=== PATIENT | female | born 2000 | race Caucasian/White ===

== ENCOUNTER → 2021-10-12 | Outpatient (CLI) | payer OTHER, SELFPAY ==
[2021-10-16 17:18] LABS: HPV Reflexed? NOT INDICATED
== END | disposition home or self-care (01) ==
LOC: LABSPEC 16:51
PROVIDERS: Visit Provider Obstetrics & Gynecology
DX: Z34.00 Encounter for supervision of normal first pregnancy, unspecified trimester (principal)
CPT/HCPCS: 87086; 88175; G0145

== ENCOUNTER → 2021-11-11 | Outpatient (CLI) | payer OTHER, SELFPAY ==
[2021-11-11 14:24] LABS: Absolute Lymphocyte Count 1.59 X10^3/uL (0.83-4.51); Absolute Neutrophil Count 5.3 X10^3/uL (2.0-7.7); Basophil# 0.02 X10^3/uL; Basophil% 0.3 % (0-1); Eosinophil# 0.07 X10^3/uL; Eosinophils% 0.9 % (0-5); Hematocrit 34.9 % (37-47); Hemoglobin 11.7 g/dL (12.0-15.0); Lymphocyte # 1.59 X10^3/ul (0.83-4.51); Lymphocyte % 21.1 % (19-41); Mean Corp Hgb Conc 33.5 g/dL (32-36); Mean Corpuscular Volume 92.6 fL (81-99); Mean Platelet Vol. 9.7 fl (6.2-12.0); Monocyte# 0.57 X10^3/uL; Monocyte% 7.6 % (0-10); NRBC Flagged by Analyzer 0 % (0-5); Neutrophil # 5.25 X10^3/uL (2.7-7.7); Neutrophil % 69.8 % (47-70); Platelet Count 228 K/mm3 (150-450); RBC Distribution Width CV 12.8 % (11.6-14.6); RBC Distribution Width SD 43.5 fl (35.1-43.9); Red Blood Count 3.77 M/mm3 (4.2-5.4); White Blood Count 7.5 K/mm3 (4.4-11.0)
[2021-11-11 14:57] LABS: Rubella IgG Reactive (Nonreactive)
== END | disposition home or self-care (01) ==
PROVIDERS: Obstetrics & Gynecology; Referring Provider Nurse Practitioner Women's Health; Visit Provider Nurse Practitioner Women's Health
DX: Z34.00 Encounter for supervision of normal first pregnancy, unspecified trimester (principal)
CPT/HCPCS: 36415; 85025; 86762; 86850; 86900; 86901

== ENCOUNTER → 2022-01-06 | Outpatient (CLI) | payer SELFPAY, OTHER ==
--- NOTE | 2022-01-06 12:48 | US_ITS ---
STUDY: SECOND AND THIRD TRIMESTER OBSTETRICAL ULTRASOUND REASON FOR EXAM: Female, 21 years old anatomy LMP: TECHNIQUE: Transabdominal and Transvaginal TECHNICAL QUALITY: Adequate. PRIOR ULTRASOUND: None. FINDINGS: There is a single intrauterine fetus. The fetus is in a cephalic presentation. There is demonstrated cardiac activity with a heart rate of 140 bpm. There is a normal amniotic fluid volume. The largest amniotic fluid pocket measures 4.2 cm x 3.6 cm. The amniotic fluid index (SHAHLA) is within normal limits. The placenta is anterior in location and is not low lying. There are Grade 0 placental changes. The cervix measures 4.1 cm in length. The bilateral adnexal regions are normal. BIOMETRY: BPD: 4.8 cm: 20 weeks, 3 days HC: 18.4 cm: 20 weeks, 5 days AC: 15.8 cm: 20 weeks, 6 days FL: 3.3 cm: 20 weeks, 2 days CI: 77.5 FL/BPD: 69% FL/HC: FL/AC: 21% HC/AC: 1.17 age by current US: 20 weeks, 3 days. CHE by current US: 05/23/2022. Estimated weight: 367 grams, +/- 55 grams, 40 %. Age by LMP: 20 weeks, 5 days. CHE by LMP: 05/21/2021. ANATOMY: Gender: Indeterminant Cranium: Normal lateral ventricles. Normal choroid plexus. Normal cerebellum. Normal cisterna magna. Normal face, nose and lips. Chest: Normal 4-chamber heart. Abdomen/Pelvis: Normal diaphragm. Normal stomach. Normal abdominal wall. Normal cord insertion. Normal 3 vessel cord. Normal kidneys. Normal bladder. Spine: Normal cervical spine. Normal thoracic spine. Normal lumbar spine. Normal sacrum. Extremities: Normal bilateral upper extremities. Normal bilateral lower extremities. IMPRESSION: Single live uterine gestation with mean gestational age of 20 weeks and 3 days. Electronically Signed: Ashvin Polk MD at 15:07 EDT , STUDY: FIRST TRIMESTER OBSTETRICAL ULTRASOUND REASON FOR EXAM: Female, 21 years old . Cervical length. LMP: TECHNIQUE: Transvaginal TECHNICAL QUALITY: Adequate. PRIOR ULTRASOUND: None. FINDINGS: The cervical length measures 4.1 cm. US/OB Anatomy Scan IMPRESSION: Cervical length measures 4.1 cm. Electronically Signed: Ashvin Polk MD at 15:08 EDT ,
== END | disposition home or self-care (01) ==
PROVIDERS: Visit Provider Nurse Practitioner Women's Health
DX: Z34.00 Encounter for supervision of normal first pregnancy, unspecified trimester (principal)
CPT/HCPCS: 76805; 76817

== ENCOUNTER → 2022-03-02 | Outpatient (CLI) | payer OTHER, SELFPAY ==
[2022-03-02 12:25] LABS: Absolute Lymphocyte Count 1.35 X10^3/uL (0.83-4.51); Absolute Neutrophil Count 7.1 X10^3/uL (2.0-7.7); Basophil# 0.03 X10^3/uL; Basophil% 0.3 % (0-1); Eosinophil# 0.06 X10^3/uL; Eosinophils% 0.7 % (0-5); Hematocrit 34.8 % (37-47); Hemoglobin 11.5 g/dL (12.0-15.0); Lymphocyte # 1.35 X10^3/ul (0.83-4.51); Mean Corpuscular Hgb 32.4 pg (27.0-32.0); Mean Platelet Vol. 10.1 fl (6.2-12.0); Monocyte# 0.36 X10^3/uL; NRBC Flagged by Analyzer 0 % (0-5); Neutrophil % 78.6 % (47-70); Platelet Count 212 K/mm3 (150-450); RBC Distribution Width CV 13.3 % (11.6-14.6); RBC Distribution Width SD 48.1 fl (35.1-43.9); Red Blood Count 3.55 M/mm3 (4.2-5.4)
[2022-03-02 12:58] LABS: Glucose Challenge Gest 1H 50g 177 mg/dL (70-140)
== END | disposition home or self-care (01) ==
LOC: LAB 11:57
PROVIDERS: Referring Provider Obstetrics & Gynecology; Visit Provider Obstetrics & Gynecology
DX: Z34.00 Encounter for supervision of normal first pregnancy, unspecified trimester (principal)
CPT/HCPCS: 36415; 82950; 85025

== ENCOUNTER → 2022-04-23 | Outpatient (CLI) | payer OTHER, SELFPAY ==
--- NOTE | 2022-04-23 13:53 | US_ITS ---
STUDY: SECOND AND THIRD TRIMESTER OBSTETRICAL ULTRASOUND - LIMITED REASON FOR EXAM: Female, 22 years old . Growth. Gestational diabetes. LMP: 08/14/2021 PRIOR ULTRASOUND: Comparison is made with prior study dated 01/06/2022. TECHNIQUE: Transabdominal TECHNICAL QUALITY: Adequate. FINDINGS: There is a single intrauterine fetus. The fetus is in a cephalic presentation. There is demonstrated cardiac activity with a heart rate of 138 bpm. There is a normal amniotic fluid volume. The largest amniotic fluid pocket measures 6.12 cm. The amniotic fluid index (SHAHLA) is 14.6 cm. The placenta is anterior in location and is not low lying. There are Grade 2 placental changes. BIOMETRY: BPD: 8.74 cm: 35 weeks, 2 days HC: 32.66 cm: 37 weeks, 0 days AC: 31.47 cm: 35 weeks, 3 days FL: 6.81 cm: 35 weeks, 0 days Age by LMP: 36 weeks, 0 days. CHE by LMP: 05/21/2021. age by prior US: 35 weeks, 5 days. CHE by prior US: 05/23/2021. age by current US: 35 weeks, 5 days. CHE by current US: 05/23/2021. Estimated weight: 2668 grams, +/- 400 grams, 35 percentile. US/OB Limited With Biometrics IMPRESSION: Single live intrauterine gestation with mean gestational age of 35 weeks and 5 days. The measurements obtained today fall within the normal expected range. Electronically Signed: Ashvin Polk MD at 15:28 EST ,
== END | disposition home or self-care (01) ==
PROVIDERS: Visit Provider Registered Nurse
DX: Z34.00 Encounter for supervision of normal first pregnancy, unspecified trimester (principal)
CPT/HCPCS: 76816; 87081

== ENCOUNTER 2022-05-02 09:00 | Outpatient (CLI) | payer OTHER, SELFPAY ==
[2022-05-02 09:14] VITALS: BMI 24.5
[2022-05-02 09:17] VITALS: BP 106/65; PULSE 93; TEMP 37; O2SAT 97
[2022-05-02 09:56] LABS: Bacteria 0 SEEN /hpf (None Seen); Mucous, Urine 0 SEEN /hpf (<or=2+); Red Blood Cells-Urine 0 SEEN /hpf (0-5); Squamous Epithelial Cells - UA 0 SEEN /hpf (5-10); White Blood Cells 0 SEEN /hpf (0-5)
--- NOTE | 2022-05-02 09:56 | OB.TRI.PN ---
Progress Notes Date of Service: 05/02/22 Progress Note: Patient presents for triage evaluation secondary to decreased movement FHT: 140 Moderate variability reactive no decelerations category I tracing [place]: no regular Contractions Assessment and plan: decreased movement Reactive NST, reassuring maternal and status patient discharged to home to follow-up as scheduled. See problem list details for additional plan information. Charges/Coding Procedures Urinary/Genital 52xxx-59xxx: 07654-89 non-stress test Interp
[2022-05-02 09:59] LABS: Color, Urine Yellow (Yellow); Glucose, Dipstick Normal (Normal); Ketone-Dipstick Negative (Negative); Leukocyte Esterase-Dipstick Negative /ul (Negative); Nitrite-Dipstick Negative (Negative); Occult Blood-Urine Negative /ul (Negative); Protein-Dipstick Negative (Negative); Specific Gravity, Urine 1.015 (1.002-1.030); Urine Bilirubin Dipstick Negative (Negative); Urine Clarity Clear (Clear); Urine Urobilinogen Normal (Normal)
[2022-05-02 10:12] LABS: Amphetamine Urine VISTA NEGATIVE (<1000 ng/mL); Barbiturate Urine VISTA NEGATIVE (< 200 ng/mL); Benzodiazepine Urine VISTA NEGATIVE (< 200 ng/mL); Cocaine Urine VISTA NEGATIVE (< 300 ng/mL); Ecstacy Urine VISTA NEGATIVE (< 500 ng/mL); Methadone Urine VISTA NEGATIVE (< 300 ng/mL); PCP Urine VISTA NEGATIVE (< 25 ng/mL); THC Urine VISTA NEGATIVE (< 50 ng/mL); Vista UDS pH Range 8
[2022-05-02 10:47] LABS: Syphilis Antibodies Non-reactive
[2022-05-02 11:09] LABS: HIV - WCH Non-Reactive (Nonreactive); Hepatitis B Surface Antigen Non-Reactive (Nonreactive); Hepatitis C Antibody Non-Reactive (Nonreactive)
[2022-05-02 11:45] LABS: Chlamydia Trachomatis by PCR Negative (Negative); Neisserai gonorrhoeae by PCR Negative (Negative); Probe Check PASS; Sample Adequacy Control PASS; Specimen Processing Control PASS
== END 2022-05-02 09:50 | disposition home or self-care (01) ==
LOC: WPOUT 09:08 → WP 09:09
PROVIDERS: Visit Provider Obstetrics & Gynecology
DX: O36.8190 Decreased fetal movements, unspecified trimester, not applicable or unspecified (principal); Z3A.00 Weeks of gestation of pregnancy not specified
CPT/HCPCS: 36415; 59025; 59050; 80307; 81001; 86703; 86780; 86803; 87340; 87491; 87591

== ENCOUNTER 2022-05-15 18:20 | Inpatient (IN) | payer SELFPAY, OTHER ==
[2022-05-15] VITALS (10 sets, daily range): BP systolic 113–132; BP diastolic 60–83; PULSE 76–100; TEMP 36.7–37.7; O2SAT 97–98; BMI 26.0
[2022-05-15 18:19] LABS: ROM Internal Control Test YES-OK TO RESULT pt. (Internal QC)
[2022-05-15 18:23] LABS: ROM Patient Test POSITIVE (Negative)
[2022-05-15] MEDS: Lactated Ringers 1,000 ML 200 ML IV (18:40)
[2022-05-15 19:22] LABS: Absolute Lymphocyte Count 1.56 X10^3/uL (0.83-4.51); Absolute Neutrophil Count 6.9 X10^3/uL (2.0-7.7); Basophil# 0.02 X10^3/uL; Basophil% 0.2 % (0-1); Eosinophil# 0.06 X10^3/uL; Eosinophils% 0.6 % (0-5); Hematocrit 36.3 % (37-47); Hemoglobin 12.5 g/dL (12.0-15.0); Lymphocyte # 1.56 X10^3/ul (0.83-4.51); Lymphocyte % 16.9 % (19-41); Mean Corp Hgb Conc 34.4 g/dL (32-36); Mean Corpuscular Hgb 33.1 pg (27.0-32.0); Mean Platelet Vol. 11.5 fl (6.2-12.0); Monocyte# 0.62 X10^3/uL; Monocyte% 6.7 % (0-10); NRBC Flagged by Analyzer 0 % (0-5); Neutrophil # 6.89 X10^3/uL (2.7-7.7); Neutrophil % 74.6 % (47-70); Platelet Count 193 K/mm3 (150-450); RBC Distribution Width CV 12.6 % (11.6-14.6); RBC Distribution Width SD 44.5 fl (35.1-43.9); Red Blood Count 3.78 M/mm3 (4.2-5.4); White Blood Count 9.2 K/mm3 (4.4-11.0)
[2022-05-15 20:56] LABS: Bedside Glucose 85 mg/dL (74-106)
[2022-05-15 20:56] LABS: Bedside Glucose 81 mg/dL (74-106)
[2022-05-16] VITALS (59 sets, daily range): BP systolic 105–152; BP diastolic 55–89; PULSE 65–112; RESP 16; TEMP 36.5–37.7; O2SAT 81–100
[2022-05-16] MEDS: 0.9% Saline Lock 10 ML Syringe IV ×2 (00:44→12:54)
[2022-05-16] MEDS: Oxytocin 15 Units/NS 250ml 15 UNITS/250 ML IV.SOLN 2 UNITS IV (00:47)
[2022-05-16 01:36] LABS: Bedside Glucose 88 mg/dL (74-106)
--- NOTE | 2022-05-16 04:50 | HP.PCM.OB_ITS ---
HPI - General General Date of Admission: 05/15/22 HPI Narrative ALLAN HUNTER, is a 22 F who presents IAL with SROM clear fluid Maternal Data Information CHE Calculator Estimated Delivery Date Method Current WG Current Estimate 05/21/22 LMP (Certain) 39w 2d Other Estimates 05/19/22 Ultrasound #1 39w 4d PFSH PFSH Medical History (Updated 05/16/22 @ 04:[address] Sherri Jamil MD) Gestational diabetes Home Medications prenat.vits,clarita,opa-neqd-dnbsg 1 tab PO DAILY 09/28/21 [History Last Taken 05/14/22] blood-glucose meter (True Metrix Air Glucose Meter) #1 ea 03/03/22 [Rx Last Taken Unknown] blood sugar diagnostic (True Metrix Glucose Test Strip) #100 ea 03/26/22 [Rx Last Taken Unknown] Allergy/AdvReac Type Severity Reaction Status Date / Time No Known Allergies Allergy Verified 05/13/22 13:00 Family History Father Hypertension Social History adopted: No household members: spouse current occupational status: employed current occupation: [employer] pets and animals: Yes pets and animals: dog(s) Smoking Status: Former smoker alcohol intake: never substance use type: does not use do you feel safe at home: Yes additional social history: Spouse Elliott History 1 Elective abortions Hx Para 0 Spontaneous abortions Hx # Term Pregnancies Ectopic pregnancies Hx # Pregnancies Multiple births # of living children Visit Details Expected Delivery Route/Plan Labor Preferences- CB/BF classes: encouraged labor support person: Elliott labor intervention preferences: [] pain management options preferred: limited intervention cut cord/dad catch: yes : yes PP control planned: discussed. discussed possible routes of delivery and associated risks: [] special requests: [] Plans Covid status: declines Flu vaccine: declines Tdap vaccine: declines Rhogam: na LARC form signed: yes Problem list reviewed and updated with the most current plan of care details and appropriate orders placed. Relevant counseling for the gestational age provided. Continue routine care and follow up unless otherwise noted in visit notes/problem list details OB Flowsheet Initial Weight: Not Recorded Date -?-?-?-?-?-?-?-?-?-?-?-?- EGA Weight BP Urine Prot -?-?-?-?-?-?-?-?-?-?-?-?- Glucose FHR FuHt Pres Dilation -?-?-?-?-?-?-?-?-?-?-?-?- Effaced St Visit Note 10/12/21 -?-?-?-?-?-?-?-?-?-?-?-?- 8w 3d 47.174 kg 130/72 -?-?-?-?-?-?-?-?-?-?-?-?- 178 -?-?-?-?-?-?-?-?-?-?-?-?- JV- , CRL co nsistent with LMP. pt is pentecostalism. wants minimal testing done to start. 11/11/21 -?-?-?-?-?-?-?-?-?-?-?-?- 12w 5d 46.04 kg 108/62 Negativ e -?-?-?-?-?-?-?-?-?-?-?-?- Negative 163 -?-?-?-?-?-?-?-?-?-?-?-?- MH-No VB. Will g et SP labs today. Br US to confirm active, live IUP 12/09/21 -?-?-?-?-?-?-?-?-?-?-?-?- 16w 5d 48.591 kg 105/68 Negati ve -?-?-?-?-?-?-?-?-?-?-?-?- Negative 155 -?-?-?-?-?-?-?-?-?-?-?-?- JV- no lof, vagi nal bleeding, or cramping. anatomy us for 01/0601/06/22 -?-?-?-?-?-?-?-?-?-?-?-?- 20w 5d 51.823 kg 120/76 Negati ve -?-?-?-?-?-?-?-?-?-?-?-?- Negative 147 -?--?-?-?-?-?-?-?-?-?-?-?- JV- normal anato my scan today. no complaints. 02/04/22 -?-?-?-?-?-?-?-?-?-?-?-?- 24w 6d 54.034 kg 112/77 Negati ve -?-?-?-?-?-?-?-?-?-?-?-?- Negative 140 23 -?-?-?-?-?-?-?-?-?-?-?-?- JV- no lof, v ag inal bleeding ,ro dec fm. no complaints. gct ordered 02/24/22 -?-?-?-?-?-?-?-?-?-?-?-?- 27w 5d 57.663 kg 110/80 Negati ve -?-?-?-?-?-?-?-?-?-?-?-?- Negative 152 26 -?-?-?-?-?-?-?-?-?-?-?-?- MH-No VB, LOF. G ood FM. Declines flu vaccine. Will do 28 wk labs within next week. Larc 03/10/22 -?-?-?-?-?-?-?-?-?-?-?-?- 29w 5d 58.627 kg 112/78 Negati ve -?-?-?-?-?-?-?-?-?-?-?-?- Negative 126 28 -?-?-?-?-?-?-?-?-?-?-?-?- JV- pt got a 17 7 on gct one hr and declined 3 hr. she is now being deemed a gestational diabetic. she has a log of her glucose levels for last week and they are normal. 03/26/22 -?-?-?-?-?-?-?-?-?-?-?-?- 32w 0d 59.988 kg 111/75 Negati ve -?-?-?-?-?-?-?-?-?-?-?-?- Negative 130 30 -?-?-?-?-?-?-?-?-?-?-?-?- SM- no vb lof go od fm no regular ctx 04/07/22 -?-?-?-?-?-?-?-?-?-?-?-?- 33w 5d 60.838 kg 111/67 Negati ve -?--?-?-?-?-?-?-?-?-?-?-?- Negative 135 30 -?-?-?-?-?-?-?-?-?-?-?-?- LC- no vb,lof,ct x. good fm. blood sugars very stable. all normal fastings and pp. growth scan ordered. 04/23/22 -?-?-?-?-?-?-?-?-?-?-?-?- 36w 0d 62.256 kg 110/76 Negati ve -?-?-?-?-?-?-?-?-?-?-?-?- Negative 124 36 Cephalic -?-?-?-?-?-?-?-?--?-?-?-?- JV- gbs collecte d. patient declines vaginal check. fundus under zyphroid. 04/29/22 -?-?-?-?-?-?-?-?-?-?-?-?- 36w 6d 63.219 kg 110/76 Negati ve -?-?-?-?-?-?-?-?-?-?-?-?- Negative 132 37 Cephalic -?-?-?-?-?-?-?-?-?-?-?-?- LC-no vb/lof/ctx . good fm. +varicose vein to left labia. gbs neg. growth scan 35%EFW. 05/05/22 -?-?-?-?-?-?-?-?-?-?-?-?- 37w 5d 64.92 kg 111/79 Negativ e -?-?-?-?-?-?-?-?-?-?-?-?- Negative 138 36 Cephalic -?-?-?-?-?-?-?-?--?-?-?-?- LC- blood sugar all controlled! LC- no vb/lof/ctx. good fm. blood sugar all controlled. declined vaginal exam. 05/13/22 -?-?-?-?-?-?-?-?-?-?-?-?- 38w 6d 65.374 kg 137/81 -?-?-?-?-?-?-?-?-?-?-?-?- 130 38 Cephalic 1 -?-?-?-?-?-?-?-?-?-?-?-?- 40 -2 SM- no vb lof good fm no regular ctx BS well controlled discuss iol by tuesday night 05/16 if no labor, will schedule next week. 05/15/22 -?-?-?-?-?-?-?-?-?-?-?-?- 39w 1d 66.735 kg 123/72 130/83 130/82 132/82 113/60 105/55 113/61 114/58 117/62 136/89 -?-?-?-?-?-?-?-?-?-?-?-?- -?-?-?-?-?-?-?-?-?-?-?-?- NST FHR Rate Baby A Baseline: 130 Variability:: Moderate Accelerations:: 15 x 15 Decelerations:: None NST Reactive:: Yes FHR Category:: Category I Uterine Activity:: q3-5 ROS Constitutional Constitutional: Reports systems reviewed and no addt'l complaints, except as documented ENT HEENT: Reports systems reviewed and no addt'l complaints, except as documented Cardiovascular Cardiovascular: Reports systems reviewed and no addt'l complaints, except as documented Respiratory/Chest Respiratory/Chest: Reports systems reviewed and no addt'l complaints, except as documented Gastrointestinal Gastrointestinal: Reports systems reviewed and no addt'l complaints, except as documented and nausea; Denies abdominal pain Genitourinary Genitourinary: Reports systems reviewed and no addt'l complaints, except as documented, contractions Details: present and frequency (regular ) and movement Details: present Musculoskeletal Musculoskeletal: Reports systems reviewed and no addt'l complaints, except as documented Integumentary Integumentary: Reports as per HPI Neurologic Neurologic: Reports systems reviewed and no addt'l complaints, except as documented Endocrine Endocrinology: Reports systems reviewed and no addt'l complaints, except as documented Vital Signs Vital Signs Vital Signs: 05/15/22 18:13 05/15/22 18:13 05/15/22 18:15 Temperature Temperature Source Temporal Pulse Rate 96 Blood Pressure 123/72 H BP Systolic 123 BP Diastolic 72 Pulse Ox 05/15/22 18:15 05/15/22 19:29 05/15/22 19:29 Temperature 99.0 F Temperature Source Pulse Rate 100 Blood Pressure 130/83 H BP Systolic 130 BP Diastolic 83 Pulse Ox 05/15/22 19:38 05/15/22 19:38 05/15/22 20:27 Temperature Temperature Source Temporal Pulse Rate 95 Blood Pressure BP Systolic BP Diastolic Pulse Ox 98 05/15/22 20:27 05/15/22 20:28 05/15/22 20:28 Temperature Temperature Source Pulse Rate 93 Blood Pressure 130/82 H BP Systolic 130 BP Diastolic 82 Pulse Ox 98 05/15/22 20:27 05/15/22 21:59 05/15/22 21:59 Temperature 98.9 F Temperature Source Temporal Pulse Rate Blood Pressure 132/82 H BP Systolic 132 BP Diastolic 82 Pulse Ox 05/15/22 22:00 05/15/22 22:00 05/15/22 21:59 Temperature 98.1 F Temperature Source Pulse Rate 83 Blood Pressure BP Systolic BP Diastolic Pulse Ox 98 05/15/22 23:18 05/15/22 23:18 05/15/22 23:18 Temperature Temperature Source Temporal Pulse Rate 76 Blood Pressure 113/60 BP Systolic 113 BP Diastolic 60 Pulse Ox 05/15/22 23:19 05/15/22 23:18 05/15/22 19:38 Temperature 98.9 F Temperature Source Temporal Pulse Rate Blood Pressure BP Systolic BP Diastolic Pulse Ox 97 05/15/22 19:38 05/16/22 00:27 05/16/22 00:27 Temperature 99.8 F H Temperature Source Pulse Rate 75 Blood Pressure 105/55 L BP Systolic 105 BP Diastolic 55 Pulse Ox 05/16/22 00:27 05/16/22 00:28 05/16/22 00:28 Temperature Temperature Source Temporal Pulse Rate 81 Blood Pressure BP Systolic BP Diastolic Pulse Ox 97 05/16/22 00:27 05/16/22 02:01 05/16/22 02:02 Temperature 99.2 F H Temperature Source Pulse Rate 75 Blood Pressure 113/61 BP Systolic 113 BP Diastolic 61 Pulse Ox 05/16/22 02:02 05/16/22 02:02 05/16/22 02:02 Temperature 98.9 F Temperature Source Temporal Pulse Rate Blood Pressure BP Systolic BP Diastolic Pulse Ox 97 05/16/22 03:02 05/16/22 03:02 05/16/22 03:03 Temperature Temperature Source Temporal Pulse Rate 68 Blood Pressure 114/58 L BP Systolic 114 BP Diastolic 58 Pulse Ox 05/16/22 03:03 05/16/22 03:02 05/16/22 03:53 Temperature 99.8 F H Temperature Source Pulse Rate Blood Pressure 117/62 BP Systolic 117 BP Diastolic 62 Pulse Ox 96 05/16/22 03:53 05/16/22 03:54 05/16/22 03:54 Temperature 98.1 F Temperature Source Temporal Pulse Rate 68 Blood Pressure BP Systolic BP Diastolic Pulse Ox Weight Weight: 66.735 kg Body Mass Index (BMI) 26.0 Physical Exam Const alert, oriented x3 and healthy appearing Constitutional Narrative: uncomfortable with contractions HEENT normocephalic and moist oral mucous membranes Head and Scalp: atraumatic Neck full ROM, no lymphadenopathy, supple and thyroid normal General: trachea midline Thyroid: thyroid normal Lymph Lymphatic: no lymphadenopathy noted Chest inspection of chest normal Resp normal respiratory effort Cardio regular rate GI normal to inspection, nondistended, normoactive bowel sounds, soft to palpation and non-tender Inspection: gravid external exam normal Bimanual Exam - Vag & Uterus: uterus non-tender Manual OB Exam: estimated gestational size appropriate, presentation cephalic, dilated, effaced and station Extremity normal to inspection General Extremity: Negative for edema Skin no rashes or lesions noted Neuro deep tendon reflexes 2+ bilaterally Motor Exam: strength 5/5 throughout and clonus absent Psych mental status grossly normal Labs Labs Labs: Blood Type A POSITIVE Antibody Screen NEGATIVE Hct 36.3 % (37-47) L Hgb 12.5 g/dL (12.0-15.0) Obstetrics US Syphilis Total Ab Non-reactive Rubella IgG Antibody Reactive (Nonreactive) Hep Bs Antigen Non-Reactive (Nonreactive) HIV 1&2 Antibody Non-Reactive (Nonreactive) Glucose 1 Hr 50 gm 177 mg/dL (70-140) H Assessment & Plan (1) : QUALIFIERS: Weeks of gestation: 39 weeks Qualified Code(s): Z3A.39 - 39 weeks gestation of COMMENT: GBS negative, Declines carrier and genetic screen. Nl anatomy (2) Supervision of normal first : COMMENT: PRR(SP labs) CHE:05/21/22 Sp:[place] (3) Gestational diabetes: COMMENT: diet controlled, well controled, check fasting daily and alternating testing after meals (4) SROM (spontaneous rupture of membranes): PLAN: Plan Patient presents IAL, plan expectant management for , pitocin PRN if needed. Pain management: minimal intervention. GBS neg. Management of any complications: none I have reviewed the [facility] and made any clinically relevant updates.
[2022-05-16 05:11] LABS: Bedside Glucose 71 mg/dL (74-106)
[2022-05-16 08:21] LABS: Bedside Glucose 86 mg/dL (74-106)
[2022-05-16] MEDS: LACTATED RINGERS 500 ML 999 ML IV (09:12)
[2022-05-16] MEDS: Lactated Ringers 1,000 ML 200 ML IV (09:12)
[2022-05-16] MEDS: Ondansetron 4 MG/2 ML Vial IV (10:12)
[2022-05-16] MEDS: fentaNYL-bupivacaine (epidural) 100 ML BAG EPIDURAL (10:47)
--- NOTE | 2022-05-16 12:31 | EX.PCM.OBRPT ---
Assessment & Plan (1) Gestational diabetes: COMMENT: diet controlled, well controled, check fasting daily and alternating testing after meals (2) Supervision of normal first : COMMENT: PRR(SP labs) CHE:05/21/22 Sp:[place] (3) : QUALIFIERS: Weeks of gestation: 39 weeks Qualified Code(s): Z3A.39 - 39 weeks gestation of COMMENT: GBS negative, Declines carrier and genetic screen. Nl anatomy (4) SROM (spontaneous rupture of membranes): (5) Vaginal delivery: COMMENT: SM IAL SROM boy Gab 39 Maternal Data Information CHE Calculator Estimated Delivery Date Method Current WG Current Estimate 05/21/22 LMP (Certain) 39w 2d Other Estimates 05/19/22 Ultrasound #1 39w 4d Vaginal Delivery Operative Information Date of Procedure: 05/16/22 Pre-Operative Diagnosis: IAL Post-Operative Diagnosis: same Surgery / Procedure Performed: Spontaneous Vaginal Delivery Type of Anesthesia: Epidural Special Medications: none Estimated Blood Loss: 200 Fluids Replaced: crystalloid Findings Description of Procedure: Patient began pushing and delivered the head in the ZINA presentation. The head was delivered atraumatically . The anterior and posterior shoulders delivered without complication followed by the rest of the infant and the was placed on the maternal abdomen. Delayed cord clamping was employed for approximately 60 seconds. Cord was clamped and cut and gentle traction was applied to the cord and the placenta delivered spontaneously immediately following it was noted to be intact with three-vessel cord. The perineum and vagina were inspected and noted to have a second degree laceration repaired in the usual fashion. EBL was 200. Patient and infant tolerated delivery well. Presentation: ZINA Amniotic Membrane Rupture Type: Spontaneous Amniotic Fluid Description: Clear Placental Delivery Description: Spontaneous Placenta Disposition: [facility] Cord Vessel Description: 3 Vessels Cord Entanglement: None Delayed Cord Clamping: Yes Post Vaginal Delivery Medications Given After Delivery: IV Pitocin Episiotomy Description: None Laceration: Perineal Extension/lac and 2nd degree Complication Complications: None Procedures Urinary/Genital 52xxx-59xxx: [id number] Vaginal Delivery [facility]
--- NOTE | 2022-05-16 12:33 | PCM.DC ---
Discharge Instructions Diet Discharge Diet: No restrictions Activity Discharge Activity: Return to Normal Activity, May Drive, May Shower and May Take a Tub Bath (in 4 weeks) May resume sexual activity in: 6-8 weeks (after seen by OB provider) Weight Bearing Status: Full weight bearing Lifting Restrictions: none Dressing / Incision Call your doctor if you observe: Fever of 101 or Higher, Inability to urinate, Using more than 1 pad per hour (for more than 2 hours in a row or more), Shortness of breath, Dizziness, Chest pain and - (headache not controlled with tylenol, change in vision) Follow Up Care When: in 6 weeks for visit, call the office to make the appointment. If you had elevated blood pressures call the office to be seen within 1 week. Test Results: Test results from this visit will be discussed in further detail at your follow-up appointment, if applicable. Discharge Plan Admission Admit Date/Time: 05/15/22 18:20 Attending Provider: Sherri Jamil Primary Care Provider: Care Physician,Lakesha Primary Discharge Orders/Prescriptions Prescriptions: No Action prenat.vits,clarita,[id number] Tablet 1 tab PO DAILY (DME) True Metrix Glucose Test Strip Strip See Rx Instructions .ROUTE .MEDSUPPLY Qty: 100 4RF Rx Instructions: As directed (DME) blood-glucose meter [True Metrix Air Glucose Meter] [facility] See Rx Instructions .ROUTE .MEDSUPPLY Qty: 1 0RF Rx Instructions: As directed Referrals / Follow Up: Care Physician,No Primary [Primary Care Provider] - Disposition Disposition (needs filled in before D/C Order can be placed): Home, Self Care
[2022-05-16 14:05] LABS: Bedside Glucose 105 mg/dL (74-106)
[2022-05-16] MEDS: Acetaminophen 500 MG Tablet 1000 MG PO (19:45)
[2022-05-17 04:04] VITALS: BP 121/74; PULSE 74; RESP 18; TEMP 36.8
[2022-05-17] MEDS: Acetaminophen 500 MG Tablet 1000 MG PO (04:34)
[2022-05-17 06:46] LABS: Bedside Glucose 79 mg/dL (74-106)
[2022-05-17 08:25] VITALS: BP 126/61; PULSE 76; RESP 16; TEMP 36.6
--- NOTE | 2022-05-17 08:40 | PCM.PN.OB ---
Subjective Subjective Patient doing well without complaints. Tolerating PO. Ambulating and voiding without difficulty. Feeding well. Denies chest pain, shortness of breath, calf pain/swelling, fevers, chills, lightheadedness. Objective Data Objective Data Vital Signs: Vital Signs Temp Pulse Resp BP Pulse Ox O2 Del Method 98.3 F 74 18 121/74 H 97 Room Air 05/17/22 04:04 05/17/22 04:04 05/17/22 04:04 05/17/22 04:04 05/16/22 17:23 05/16/22 23:44 Oxygen Delivery Method Room Air Weight: 147 lb 2 oz Body Mass Index (BMI) 26.0 Intake & Output: Intake and Output for Last 24 Hours 05/15/22 05/16/22 05/17/22 23:59 23:59 23:59 Intake Total 295.84 / 295.84 1799.17 / 1799.17 Output Total 825 / 825 Balance 295.84 / 295.84 974.17 / 974.17 Lab / Micro Data Result Diagrams: 05/15/22 18:35 Labs: Laboratory Results - last 24 hr 05/16/22 13:31: POC Glucose 105 05/17/22 06:23: POC Glucose 79 Physical Exam Const alert, oriented x3 and no apparent distress HEENT normocephalic Eyes PERRL Chest inspection of chest normal Nipple/Areola: nipples/areola normal Resp normal respiratory effort, normal air movement, no retractions and no use of accessory muscles Cardio regular rate GI normal to inspection, nondistended, normoactive bowel sounds GI Narrative: fundus firm at u, mild lochia, no clots Extremity normal to inspection Skin no rashes or lesions noted Neuro oriented x3 Psych mental status grossly normal Assessment & Plan (1) Vaginal delivery: COMMENT: SM IAL SROM boy Gab 39 (2) Gestational diabetes: COMMENT: diet controlled, well controlled 2 hour GTT PLAN: Plan s/p PPD # 1, normal pp exam. stable for d/c 1. routine post delivery care 2. breast feeding- support given 3. rh positive 4. rubella immune 5. d/c home today
[2022-05-17 08:51] VITALS: BP 126/61; PULSE 76
[2022-05-17] MEDS: Benzocaine/Lanolin/Aloe Vera 1 SPRAY EACH TOPICAL (09:03)
[2022-05-17 12:28] VITALS: BP 120/67; PULSE 85
[2022-05-17 13:04] VITALS: BP 120/67; PULSE 85; RESP 16; TEMP 36.5
== END 2022-05-17 14:15 | disposition home or self-care (01) | DRG 807 ==
LOC: WP 18:26 → WPOUT 05-17 11:39
PROVIDERS: Admitting Provider Obstetrics & Gynecology; Visit Provider Obstetrics & Gynecology
DX: O24.420 Gestational diabetes mellitus in childbirth, diet controlled (principal); Z37.0 Single live birth; O42.92 Full-term premature rupture of membranes, unspecified as to length of time between rupture and onset of labor; O70.1 Second degree perineal laceration during delivery; Z3A.39 39 weeks gestation of pregnancy; Z87.891 Personal history of nicotine dependence
CPT/HCPCS: 59025; 59050; 82962; 84112; 85025; 86850; 86900; 86901; 99221; J7120; A4216; G0378; J2405

== ENCOUNTER → 2023-06-16 | Outpatient (CLI) | payer OTHER, SELFPAY ==
[2023-06-21 06:09] LABS: Chlamydia By Nucleic Acid AMP Negative (Negative); Gonococcus By Nucleic Acid AMP Negative (Negative)
== END | disposition home or self-care (01) ==
LOC: LABSPEC 16:32
PROVIDERS: Referring Provider Advanced Practice Midwife; Visit Provider Advanced Practice Midwife
DX: Z34.90 Encounter for supervision of normal pregnancy, unspecified, unspecified trimester (principal); Z3A.00 Weeks of gestation of pregnancy not specified
CPT/HCPCS: 87086; 87491; 87591

== ENCOUNTER → 2023-07-12 | Outpatient (CLI) | payer OTHER, SELFPAY ==
[2023-07-12 14:43] LABS: Absolute Lymphocyte Count 1.88 X10^3/uL (0.83-4.51); Absolute Neutrophil Count 6.2 X10^3/uL (2.0-7.7); Basophil# 0.03 X10^3/uL; Basophil% 0.3 % (0-1); Eosinophil# 0.06 X10^3/uL; Eosinophils% 0.7 % (0-5); Hematocrit 34.5 % (37-47); Hemoglobin 11.4 g/dL (12.0-15.0); Lymphocyte # 1.88 X10^3/ul (0.83-4.51); Lymphocyte % 21.4 % (19-41); Mean Corpuscular Hgb 29.6 pg (27.0-32.0); Mean Corpuscular Volume 89.6 fL (81-99); Mean Platelet Vol. 9.6 fl (6.2-12.0); Monocyte# 0.55 X10^3/uL; Monocyte% 6.3 % (0-10); NRBC Flagged by Analyzer 0 % (0-5); Neutrophil # 6.23 X10^3/uL (2.7-7.7); Platelet Count 276 K/mm3 (150-450); RBC Distribution Width CV 13.3 % (11.6-14.6); RBC Distribution Width SD 43.6 fl (35.1-43.9); Red Blood Count 3.85 M/mm3 (4.2-5.4); White Blood Count 8.8 K/mm3 (4.4-11.0)
[2023-07-12 15:24] LABS: Hemoglobin A1c 5.4 % (3.8-5.6)
[2023-07-12 15:57] LABS: HIV - WCH Non-Reactive (Nonreactive); Hepatitis B Surface Antigen Non-Reactive (Nonreactive); Hepatitis C Antibody Non-Reactive (Nonreactive); Rubella IgG Reactive (Nonreactive); Syphilis Antibodies Non-reactive
== END | disposition home or self-care (01) ==
PROVIDERS: Referring Provider Advanced Practice Midwife; Visit Provider Advanced Practice Midwife
DX: O09.299 Supervision of pregnancy with other poor reproductive or obstetric history, unspecified trimester (principal); Z86.32 Personal history of gestational diabetes; Z3A.00 Weeks of gestation of pregnancy not specified
CPT/HCPCS: 36415; 83036; 85025; 86703; 86762; 86780; 86803; 86850; 86900; 86901; 87340

== ENCOUNTER → 2023-09-05 | Outpatient (CLI) | payer SELFPAY, OTHER ==
--- NOTE | 2023-09-05 14:12 | US_ITS ---
STUDY: SECOND AND THIRD TRIMESTER OBSTETRICAL ULTRASOUND REASON FOR EXAM: Female, 23 years old anatomy LMP: April 18, 2023. TECHNIQUE: Transabdominal and Transvaginal TECHNICAL QUALITY: Adequate. PRIOR ULTRASOUND: None. FINDINGS: There is a single intrauterine fetus. The fetus is in a cephalic presentation. There is demonstrated cardiac activity with a heart rate of 155 bpm. There is a normal amniotic fluid volume. The largest amniotic fluid pocket measures 4 cm. The amniotic fluid index (SHAHLA) is within normal limits. The placenta is posterior in location and is not low lying. There are Grade 1 placental changes. The cervix measures 3.7 cm in length. The bilateral adnexal regions are normal. BIOMETRY: BPD: 4.5 cm: 19 weeks, 4 days HC: 16.8 cm: 19 weeks, 3 days AC: 15.2 cm: 20 weeks, 3 days FL: 3.1 cm: weeks, 3 days CI: 76.7 FL/BPD: 68.4 FL/HC: FL/AC: 20.1 HC/AC: 1.1 age by current US: 19 weeks, 5 days. CHE by current US: January 25, 2024. Estimated weight: 324 grams, +/- 49 grams, 44 %. Age by LMP: 20 weeks, 0 days. CHE by LMP: January 23, 2024. ANATOMY: Gender: Female Cranium: Normal lateral ventricles. Normal choroid plexus. Normal cerebellum. Normal cisterna magna. Normal face, nose and lips. Chest: Normal 4-chamber heart. Abdomen/Pelvis: Normal diaphragm. Normal stomach. Normal abdominal wall. Normal cord insertion. Normal 3 vessel cord. Normal kidneys. Normal bladder. Spine: Normal cervical spine. Normal thoracic spine. Normal lumbar spine. Normal sacrum. Extremities: Normal bilateral upper extremities. Normal bilateral lower extremities. IMPRESSION: Single live intrauterine gestation with mean gestational age of 19 weeks and 5 days. Electronically Signed: Ashvin Polk MD at 9:58 EDT , STUDY: FIRST TRIMESTER OBSTETRICAL ULTRASOUND REASON FOR EXAM: Female, 23 years old . Cervical length. LMP: April 18, 2023. TECHNIQUE: Transvaginal TECHNICAL QUALITY: Adequate. PRIOR ULTRASOUND: None. FINDINGS: Cervical length measures 3.7 cm. US/OB Anatomy w/ Transvaginal IMPRESSION: Cervical length measures 3.7 cm. Electronically Signed: Ashvin Polk MD at 9:58 EDT ,
== END | disposition home or self-care (01) ==
LOC: US 14:12
PROVIDERS: Referring Provider Obstetrics & Gynecology; Visit Provider Obstetrics & Gynecology
DX: Z34.90 Encounter for supervision of normal pregnancy, unspecified, unspecified trimester (principal); Z3A.00 Weeks of gestation of pregnancy not specified
CPT/HCPCS: 76805; 76817

== ENCOUNTER → 2023-10-22 | Outpatient (CLI) | payer OTHER, SELFPAY ==
[2023-10-22 09:25] LABS: Absolute Lymphocyte Count 1.28 X10^3/uL (0.83-4.51); Absolute Neutrophil Count 5.2 X10^3/uL (2.0-7.7); Basophil# 0.02 X10^3/uL; Basophil% 0.3 % (0-1); Eosinophil# 0.07 X10^3/uL; Hematocrit 33.4 % (37-47); Hemoglobin 10.7 g/dL (12.0-15.0); Lymphocyte # 1.28 X10^3/ul (0.83-4.51); Lymphocyte % 18.6 % (19-41); Mean Corpuscular Volume 96.8 fL (81-99); Monocyte# 0.35 X10^3/uL; Monocyte% 5.1 % (0-10); NRBC Flagged by Analyzer 0 % (0-5); Neutrophil # 5.15 X10^3/uL (2.7-7.7); Neutrophil % 74.6 % (47-70); Platelet Count 264 K/mm3 (150-450); RBC Distribution Width CV 13.5 % (11.6-14.6); RBC Distribution Width SD 47.2 fl (35.1-43.9); Red Blood Count 3.45 M/mm3 (4.2-5.4); White Blood Count 6.9 K/mm3 (4.4-11.0)
[2023-10-22 09:40] LABS: Glucose Challenge Gest 1H 50g 124 mg/dL (70-140)
[2023-10-24 08:33] LABS: HIV - WCH Non-Reactive (Nonreactive); Syphilis Antibodies Non-reactive
== END | disposition home or self-care (01) ==
LOC: LAB 08:24
PROVIDERS: Referring Provider Obstetrics & Gynecology; Visit Provider Obstetrics & Gynecology
DX: O09.90 Supervision of high risk pregnancy, unspecified, unspecified trimester (principal); Z13.1 Encounter for screening for diabetes mellitus; Z3A.00 Weeks of gestation of pregnancy not specified
CPT/HCPCS: 36415; 82950; 85025; 86703; 86780

== ENCOUNTER → 2023-12-16 | Outpatient (CLI) | payer SELFPAY, OTHER ==
--- NOTE | 2023-12-16 11:03 | US_ITS ---
HISTORY: growth. TECHNIQUE: Transabdominal pelvic ultrasound was performed. 50 images. COMPARISON: 09/05/2023. FINDINGS: INTRAUTERINE GESTATION(s): Single. PRESENTATION: Cephalic. HEART MOTION: 137-140 bpm. PLACENTA: Posterior, grade one. No placenta previa. CERVIX: Not well-visualized. AMNIOTIC FLUID INDEX (SHAHLA): 14.1 cm. Largest fluid pocket 4.9 cm. biometry- BIPARIETAL DIAMETER: 8.7 cm, corresponding to 35 weeks 1 day. HEAD CIRCUMFERENCE: 31.5 cm, corresponding to 35 weeks 3 days. ABDOMINAL CIRCUMFERENCE: 31.1 cm, corresponding to 35 weeks 0 days. FEMUR LENGTH: 6.5 cm, corresponding to 33 weeks 4 days. ESTIMATED GESTATIONAL AGE: 34 weeks 5 days. ESTIMATED DUE DATE (CHE): 01/22/2024. ESTIMATED WEIGHT: 2516 g corresponding to 52nd percentile US/OB Limited With Biometrics IMPRESSION: Single live intrauterine with an estimated gestational age of 34 weeks 5 days. Electronically Signed: Elida Anand MD at 11:43 EDT ,
== END | disposition home or self-care (01) ==
LOC: US 11:02
PROVIDERS: Referring Provider Obstetrics & Gynecology; Visit Provider Obstetrics & Gynecology
DX: O26.843 Uterine size-date discrepancy, third trimester (principal); O09.299 Supervision of pregnancy with other poor reproductive or obstetric history, unspecified trimester; Z3A.00 Weeks of gestation of pregnancy not specified
CPT/HCPCS: 76816

== ENCOUNTER → 2023-12-26 | Outpatient (CLI) | payer OTHER, SELFPAY | END | disposition home or self-care (01) | PROVIDERS: Referring Provider Advanced Practice Midwife; Visit Provider Advanced Practice Midwife | DX: O09.90 Supervision of high risk pregnancy, unspecified, unspecified trimester (principal); Z3A.00 Weeks of gestation of pregnancy not specified | CPT/HCPCS: 87081 ==

== ENCOUNTER 2024-01-05 17:50 | Outpatient (CLI) | payer OTHER, SELFPAY ==
[2024-01-05 18:10] VITALS: BMI 26.2
[2024-01-05 18:11] VITALS: BP 116/66; PULSE 88; PULSE 90; RESP 16; TEMP 36.8; O2SAT 98
[2024-01-05 19:26] LABS: ROM Internal Control Test YES-OK TO RESULT pt. (Internal QC); ROM Patient Test Negative (Negative); Record Kit Lot#, ROM+ K1866
--- NOTE | 2024-01-06 07:35 | OB.TRI.PN_ITS ---
Progress Notes Date of Service: 01/05/24 Progress Note: Patient presents for triage evaluation secondary to leg trauma s/p fall FHT: 140 Moderate variability reactive no decelerations category I tracing [place]: no regular Contractions Assessment and plan: fell onto her leg no abdominal trauma no ctx feeling baby move Reactive NST, reassuring maternal and status patient discharged to home to follow-up as scheudled. See problem list details for additional plan information. Laboratory Studies: Laboratory Tests 01/05/24 Range/Units 18:58 Vag Amniotic Fld Detect Negative (Negative) Charges/Coding Procedures Urinary/Genital 52xxx-59xxx: 42772-79 non-stress test Interp Assessment & Plan (1) : QUALIFIERS: Weeks of gestation: 37 weeks Qualified Code(s): Z3A.37 - 37 weeks gestation of COMMENT: GBS neg, discussed ntd genetic & carrier testing, declines. nl anatomy (2) Supervision of high-risk : COMMENT: PRR, , CHE 01/23/24 girl PC Gab Elliott (3) History of gestational diabetes mellitus (GDM) in prior , currently : COMMENT: A1C-nl 5.4 (4) Uterine size-date discrepancy, third trimester: COMMENT: growth us ordered 52% (5) Fall:
== END 2024-01-05 19:35 | disposition home or self-care (01) ==
LOC: WPOUT 17:54 → WP 17:55
PROVIDERS: Referring Provider Obstetrics & Gynecology; Visit Provider Obstetrics & Gynecology
DX: O9A.213 Injury, poisoning and certain other consequences of external causes complicating pregnancy, third trimester (principal); S89.80XA Other specified injuries of unspecified lower leg, initial encounter; W19.XXXA Unspecified fall, initial encounter; O26.843 Uterine size-date discrepancy, third trimester; Z3A.37 37 weeks gestation of pregnancy; O09.93 Supervision of high risk pregnancy, unspecified, third trimester
CPT/HCPCS: 59025; 59050; 84112; 99221; G0378

== ENCOUNTER 2024-01-18 13:15 | Inpatient (IN) | payer SELFPAY, OTHER ==
[2024-01-18] VITALS (45 sets, daily range): BP systolic 113–136; BP diastolic 65–82; PULSE 75–119; RESP 16–18; TEMP 37.2–37.3; O2SAT 97–100; BMI 26.5
[2024-01-18 14:22] LABS: Absolute Lymphocyte Count 1.41 X10^3/uL (0.83-4.51); Absolute Neutrophil Count 7.9 X10^3/uL (2.0-7.7); Basophil# 0.03 X10^3/uL; Basophil% 0.3 % (0-1); Eosinophil# 0.01 X10^3/uL; Eosinophils% 0.1 % (0-5); Hematocrit 35.6 % (37-47); Hemoglobin 11.7 g/dL (12.0-15.0); Lymphocyte # 1.41 X10^3/ul (0.83-4.51); Lymphocyte % 14.1 % (19-41); Mean Corp Hgb Conc 32.9 g/dL (32-36); Mean Corpuscular Hgb 30.5 pg (27.0-32.0); Mean Platelet Vol. 10.5 fl (6.2-12.0); Monocyte# 0.58 X10^3/uL; Monocyte% 5.8 % (0-10); NRBC Flagged by Analyzer 0 % (0-5); Neutrophil # 7.91 X10^3/uL (2.7-7.7); Neutrophil % 79.2 % (47-70); Platelet Count 204 K/mm3 (150-450); RBC Distribution Width CV 15.3 % (11.6-14.6); RBC Distribution Width SD 51.8 fl (35.1-43.9); Red Blood Count 3.83 M/mm3 (4.2-5.4)
[2024-01-18 15:24] LABS: Syphilis Antibodies Non-reactive
[2024-01-18] MEDS: Oxytocin 15 Units/NS 250ml 15 UNITS/250 ML IV.SOLN 334 UNITS IV (18:18)
[2024-01-18] MEDS: Lidocaine 1% (20 ml mdv) 20 ML Vial INFILT (18:41)
--- NOTE | 2024-01-18 18:51 | HP.PCM.OB_ITS ---
HPI - General General Date of Admission: 01/18/24 HPI Narrative ALLAN HUNTER, is a 23 F who presents IAL 5-6 cm regular ctx no vb lof admits good fm Maternal Data Information CHE Calculator Estimated Delivery Date Method Current WG Current Estimate 01/23/24 Conception 39w 2d Other Estimates 01/23/24 Ultrasound #1 39w 2d PFSH PFSH Medical History (Updated 01/18/24 @ 18:[address] Sherri Jamil MD) Superficial varicosities Seasonal allergies care and examination Vaginal delivery Gestational diabetes Gestational diabetes Home Medications ?Medication ?Instructions ?Recorded ?Last Taken ?Type cholecalciferol (vitamin D3) 125 125 mcg PO DAILY 06/07/23 01/05/24 08:00 History mcg (5,000 unit) capsule 125 mcg multivitamin no.47-iron fum 27 1 cap PO DAILY 06/07/23 01/05/24 12:00 History mg-folate no.1 1 mg-dha 300 mg 1 cap capsule (PNV-DHA) docosahexaenoic acid PO pregnacy 01/18/24 01/18/24 History Allergy/AdvReac Type Severity Reaction Status Date / Time No Known Allergies Allergy Verified 01/18/24 13:55 Family History Father Hypertension Hyperlipidemia Social History adopted: No household members: spouse number of children: 1 current occupational status: employed current occupation: [employer] pets and animals: Yes pets and animals: dog(s) history of recent travel: No sexually active: Yes Smoking Status: Former smoker Tobacco: How many years used: 1 alcohol intake: never substance use type: does not use well-balanced diet: daily or most days caffeine: Yes Type: coffee Number of servings: 1 eating out: rarely or never during the past year weight has: remained stable what type of physical activity do you participate in: aerobics frequency: daily duration: 15-30 minutes/day mino/oriental orthodox: Shar seatbelt use: always do you feel safe at home: Yes additional social history: Spouse Elliott Melvin History 2 Elective abortions Hx Para 1 Spontaneous abortions Hx # Term Pregnancies Ectopic pregnancies Hx # Pregnancies Multiple births # of living children 1 Past Pregnancies Del. Date Name GA/Weeks Outcome Route Bth Weight Infant Gen Labor Lgth Ane kelsea Lovell Provider FOB 05/21/22 Gab 38 live - full term [id number] epidlakshmi al [facility] Loulou Gallagher Delivery Date: 05/21/22 Last Updated by: Terestia EATON Visit Details Expected Delivery Route/Plan Labor Preferences- CB/BF classes: [] labor support person: [] labor intervention preferences: [] pain management options preferred: [] cut cord/dad catch: [] : [] PP control planned: [] discussed possible routes of delivery and associated risks: [] special requests: [] Plans Covid status: [] Flu vaccine: [] Tdap vaccine: declined Rhogam: [na LARC form signed: declined movement and labor precautions reviewed. Problem list reviewed and updated with the most current plan of care details and appropriate orders placed. Relevant counseling for the gestational age provided. Continue routine care and follow up unless otherwise noted in visit n otes/problem list details OB Flowsheet Initial Weight: Not Recorded Date -?-?-?-?-?-?-?-?-?-?--?-?- EGA Weight BP Urine Prot -?-?-?-?-?-?-?-?-?-?-?-?- Glucose FHR FuHt Pres Dilation -?-?-?-?-?-?-?-?-?-?-?-?- Effaced St Visit Note 06/16/23 -?-?-?-?-?-?-?-?-?-?-?-?- 8w 3d 128 lb 8 oz 102/69 -?-?-?-?-?-?-?-?-?-?-?-?- 175 -?-?-?-?-?-?-?-?-?-?-?-?- kw- CRL cons wit h ETC. Had not yet had a menses after of last child. 17mm today. 8w3d. declines NIPT. 07/12/23 -?-?-?-?-?-?-?-?-?-?-?-?- 12w 1d 126 lb 4 oz 128/70 Nega tive -?-?-?-?-?-?-?-?-?-?-?-?- Negative 168 -?-?-?-?-?-?-?-?-?-?-?-?- JV- CRL consiste nt with last scan. Needs new ob labs. declines NIPT. RTO in 4 weeks. 08/18/23 -?-?-?-?-?-?-?-?-?-?-?-?- 17w 3d 130 lb 8 oz 101/69 -?-?-?-?-?-?-?-?-?-?-?-?- 155 -?-?-?-?-?-?-?-?-?-?-?-?- LC- no vb/crampi ng. new ob labs normal. declines afp. has us scheduled. 09/05/23 -?-?-?-?-?-?-?-?-?-?-?-?- 20w 0d 132 lb 4 oz 116/74 Nega tive -?-?-?-?-?-?-?-?-?-?-?-?- Negative 155 -?-?-?-?-?-?-?-?-?-?-?-?- JV- no complaint s today. anatomy scan was done today but results are pending. RTO in 4 weeks 10/06/23 -?-?-?-?-?-?-?-?-?-?-?-?- 24w 3d 140 lb 109/70 Negative -?-?-?-?-?-?-?-?-?-?-?-?- Negative 150 -?-?-?-?-?-?-?-?-?-?-?-?- SM- no vb lof go od fm no regular ctx 11/04/23 -?-?-?-?-?-?-?-?-?-?-?-?- 28w 4d 145 lb 4 oz 109/69 Nega tive -?-?-?-?-?-?-?-?-?--?-?-?- Negative 140 28 -?-?-?-?-?-?-?-?-?-?-?-?- LC- no vb/ctx/lo f. good fm.passed glucose. 11/24/23 -?-?-?-?-?-?-?-?-?-?-?-?- 31w 3d 144 lb 108/72 Trace -?-?-?-?-?-?-?-?-?-?-?-?- Negative 148 31 Cephalic -?-?-?-?-?-?-?-?-?-?-?-?- KW- no vb/lof/ct x. good fm. no concerns KW- no vb/lof/ctx. good fm. no concerns. larc today. declines tdap 12/14/23 -?-?-?-?-?-?-?-?-?-?-?-?- 34w 2d 148 lb 106/74 Negative -?-?-?-?-?-?-?-?-?-?-?-?- Negative 145 31 Cephalic -?-?-?-?-?-?-?-?-?-?-?-?- Sm-ordered growt h us no vb lof good fm no regular ctx 12/26/23 -?-?-?-?-?-?-?-?-?-?-?-?- 36w 0d 150 lb 107/72 Negative -?-?-?-?-?-?-?-?-?-?-?-?- Negative 140 34 Cephalic 2 -?-?-?-?-?-?-?-?-?-?-?-?- 80 -2 KW- no vb/ lof/ctx. good fm. GBS today. normal growth US last appt. labor precautions. 01/02/24 -?-?-?-?-?-?-?-?-?-?-?-?- 37w 0d 151 lb 2 oz 111/75 Nega tive -?-?-?-?-?-?-?-?-?-?-?-?- Negative 140 34 Cephalic 3 -?-?-?-?-?-?-?-?-?-?-?-?- 80 -1 KW- no vb/ lof/ctx. good fm. SHAHLA by JV-7.70. will have rest of appts in [place] for fluid checks. 01/10/24 -?-?--?-?-?-?-?-?-?-?-?-?- 38w 1d 152 lb 121/83 Negative -?-?-?-?-?-?-?-?-?-?-?-?- Negative 155 35 Cephalic 3 -?-?-?-?-?-?-?-?-?-?-?-?- 70 -2 KW- no vb/ lof/reg ctx. good fm. SHAHLA today by JV-10. requesting membrane sweep next week. 01/17/24 -?-?-?-?-?-?-?-?-?-?-?-?- 39w 1d 153 lb 8 oz 121/84 Nega tive -?-?-?-?--?-?-?-?-?-?-?-?- Negative 135 35 Cephalic 4 -?-?-?-?-?-?-?-?-?-?-?-?- 80 -2 kw-no vb/l of/some reg ctx. good fm. kw-no vb/lof/some reg ctx. g ood fm. SHAHLA- 17.5 kw-no vb/lof/some reg ctx. g ood fm. SHAHLA- 17.5 by SM. another growth US ordered for this week if does not go into labor NST FHR Rate Baby A Baseline: 140 Variability:: Moderate Accelerations:: 15 x 15 Decelerations:: None NST Reactive:: Yes FHR Category:: Category I Uterine Activity:: q3-5 ROS Constitutional Constitutional: Reports systems reviewed and no addt'l complaints, except as documented ENT HEENT: Reports systems reviewed and no addt'l complaints, except as documented Cardiovascular Cardiovascular: Reports systems reviewed and no addt'l complaints, except as documented Respiratory/Chest Respiratory/Chest: Reports systems reviewed and no addt'l complaints, except as documented Gastrointestinal Gastrointestinal: Reports systems reviewed and no addt'l complaints, except as documented and nausea; Denies abdominal pain Genitourinary Genitourinary: Reports systems reviewed and no addt'l complaints, except as documented, contractions Details: present and frequency (regular ) and movement Details: present Musculoskeletal Musculoskeletal: Reports systems reviewed and no addt'l complaints, except as documented Integumentary Integumentary: Reports as per HPI Neurologic Neurologic: Reports systems reviewed and no addt'l complaints, except as documented Endocrine Endocrinology: Reports systems reviewed and no addt'l complaints, except as documented Vital Signs Vital Signs Vital Signs: 01/18/24 13:01 01/18/24 13:01 01/18/24 13:01 Temperature Temperature Source Pulse Rate 119 H Respiratory Rate Blood Pressure 118/77 BP Systolic 118 BP Diastolic 77 Pulse Ox 99 01/18/24 15:30 01/18/24 15:30 01/18/24 15:30 Temperature Temperature Source Temporal Pulse Rate 104 H Respiratory Rate Blood Pressure 136/82 H BP Systolic 136 BP Diastolic 82 Pulse Ox 01/18/24 15:30 01/18/24 15:30 01/18/24 17:49 Temperature 99.0 F Temperature Source Pulse Rate Respiratory Rate 16 Blood Pressure 128/80 H BP Systolic 128 BP Diastolic 80 Pulse Ox 01/18/24 17:49 01/18/24 18:21 01/18/24 18:21 Temperature Temperature Source Pulse Rate 81 88 Respiratory Rate Blood Pressure BP Systolic BP Diastolic Pulse Ox 100 01/18/24 18:26 01/18/24 18:26 01/18/24 18:30 Temperature Temperature Source Temporal Pulse Rate 95 Respiratory Rate Blood Pressure BP Systolic BP Diastolic Pulse Ox 100 01/18/24 18:30 01/18/24 18:30 01/18/24 18:31 Temperature 99.0 F Temperature Source Pulse Rate Respiratory Rate 16 Blood Pressure 124/79 H BP Systolic 124 BP Diastolic 79 Pulse Ox 01/18/24 18:31 01/18/24 18:31 01/18/24 18:31 Temperature Temperature Source Pulse Rate 93 85 Respiratory Rate Blood Pressure BP Systolic BP Diastolic Pulse Ox 99 01/18/24 18:36 01/18/24 18:36 01/18/24 18:41 Temperature Temperature Source Pulse Rate 95 92 Respiratory Rate Blood Pressure BP Systolic BP Diastolic Pulse Ox 100 01/18/24 18:41 01/18/24 18:45 01/18/24 18:45 Temperature Temperature Source Pulse Rate 90 Respiratory Rate Blood Pressure 115/71 BP Systolic 115 BP Diastolic 71 Pulse Ox 100 01/18/24 18:46 01/18/24 18:46 Temperature Temperature Source Pulse Rate 90 Respiratory Rate Blood Pressure BP Systolic BP Diastolic Pulse Ox 100 Weight Weight: 150 lb Body Mass Index (BMI) 26.5 Physical Exam Const alert, oriented x3 and healthy appearing Constitutional Narrative: uncomfortable with contractions HEENT normocephalic and moist oral mucous membranes Head and Scalp: atraumatic Neck full ROM, no lymphadenopathy, supple and thyroid normal General: trachea midline Thyroid: thyroid normal Lymph Lymphatic: no lymphadenopathy noted Chest inspection of chest normal Resp normal respiratory effort Cardio regular rate GI normal to inspection, nondistended, normoactive bowel sounds, soft to palpation and non-tender Inspection: gravid external exam normal Bimanual Exam - Vag & Uterus: uterus non-tender Manual OB Exam: estimated gestational size appropriate, presentation cephalic, dilated, effaced and station Extremity normal to inspection General Extremity: Negative for edema Skin no rashes or lesions noted Neuro deep tendon reflexes 2+ bilaterally Motor Exam: strength 5/5 throughout and clonus absent Psych mental status grossly normal Labs Labs Labs: Blood Type A POSITIVE Antibody Screen NEGATIVE Hct 35.6 % (37-47) L Hgb 11.7 g/dL (12.0-15.0) L Obstetrics Ultrasound Syphilis Total Ab Non-reactive Rubella IgG Antibody Reactive (Nonreactive) Hep Bs Antigen Non-Reactive (Nonreactive) Hepatitis C Antibody Non-Reactive (Nonreactive) Chlamydia DNA (ELINOR) Negative (Negative) N.gonorrhoeae DNA (ELINOR) Negative (Negative) HIV 1&2 Antibody Non-Reactive (Nonreactive) Glucose 1 Hr 50 gm 124 mg/dL (70-140) Assessment & Plan (1) : QUALIFIERS: Weeks of gestation: 39 weeks Qualified Code(s): Z3A.39 - 39 weeks gestation of COMMENT: GBS neg, discussed ntd genetic & carrier testing, declines. nl anatomy (2) Supervision of high-risk : COMMENT: PRR, , CHE 01/23/24 girl PC Gab Elliott (3) History of gestational diabetes mellitus (GDM) in prior , currently : COMMENT: A1C-nl 5.4 (4) Uterine size-date discrepancy, third trimester: COMMENT: growth us ordered 52% (5) Active labor at term: PLAN: Plan Patient presents IAL, plan expectant management for , pitocin/AROM PRN if needed. Pain management: minimal intervention. GBS neg. Management of any complications: none I have reviewed the [facility] and made any clinically relevant updates.
--- NOTE | 2024-01-18 18:53 | EX.PCM.OBRPT ---
Assessment & Plan (1) Active labor at term: (2) Uterine size-date discrepancy, third trimester: COMMENT: growth us ordered 52% (3) History of gestational diabetes mellitus (GDM) in prior , currently : COMMENT: A1C-nl 5.4 (4) Supervision of high-risk : COMMENT: PRR, , CHE 01/23/24 girl PC Gab Elliott (5) : QUALIFIERS: Weeks of gestation: 39 weeks Qualified Code(s): Z3A.39 - 39 weeks gestation of COMMENT: GBS neg, discussed ntd genetic & carrier testing, declines. nl anatomy (6) Vaginal delivery: COMMENT: SM IAL 39 girl Ivy Maternal Data Information CHE Calculator Estimated Delivery Date Method Current WG Current Estimate 01/23/24 Conception 39w 2d Other Estimates 01/23/24 Ultrasound #1 39w 2d Vaginal Delivery Operative Information Pre-Operative Diagnosis: see a/p diagnoses Post-Operative Diagnosis: same Surgery / Procedure Performed: Spontaneous Vaginal Delivery Type of Anesthesia: Epidural Special Medications: none Estimated Blood Loss: 200 Fluids Replaced: crystalloid Findings Description of Procedure: Patient began pushing and delivered the head in the ZINA presentation. The head was delivered atraumatically. The anterior and posterior shoulders delivered without complication followed by the rest of the and the infant was placed on the maternal abdomen. Delayed cord clamping was employed for approximately 60 seconds. Cord was clamped and cut and gentle traction was applied to the cord and the placenta delivered spontaneously immediately following it was noted to be intact with three-vessel cord. The perineum and vagina were inspected and noted to have a second degree perineal laceration which was injected with lidocaine and repaired in the usual fashion with 3-0 vicryl rapide. . EBL was 300. Patient and infant tolerated delivery well. Amniotic Fluid Description: Clear Placental Delivery Description: Spontaneous Placenta Disposition: [facility] Cord Vessel Description: 3 Vessels Cord Entanglement: None Delayed Cord Clamping: Yes Post Vaginal Delivery Medications Given After Delivery: IV Pitocin Episiotomy Description: None Complication Complications: None Procedures Urinary/Genital 52xxx-59xxx: [id number] Vaginal Delivery [facility]
[2024-01-18] MEDS: Oxytocin 15 Units/NS 250ml 15 UNITS/250 ML IV.SOLN 83 UNITS IV (18:56)
--- NOTE | 2024-01-18 18:58 | DCINST_ITS ---
Discharge Instructions Diet Discharge Diet: No restrictions Activity Discharge Activity: Return to Normal Activity, May Not Drive (while taking narcotic pain medications.) and May Shower May resume sexual activity in: 4-6 weeks Dressing / Incision Call your doctor if your incision/area has: Continuous Slow Oozing, Sudden Increased Bleeding, Increased Pain/ Swelling, Increased Redness and Foul Smelling Discharge Follow Up Care Please Follow Up With: Sherri Jamil MD When: Call [phone] to make an appointment with your doctor in 6 weeks. If you had elevated blood pressure or 4th degree laceration, you will need to be seen in 2 weeks. Test Results: Test results from this visit will be discussed in further detail at your follow- up appointment, if applicable. Discharge Plan Admission Admit Date/Time: 01/18/24 13:15 Attending Provider: Sherri Jamil Primary Care Provider: Care Physician,Lakesha Primary Discharge Orders/Prescriptions Prescriptions: No Action PNV-DHA 27 mg iron-1 mg -300 mg capsule 1 cap PO DAILY cholecalciferol (vitamin D3) 125 mcg (5,000 unit) capsule 125 mcg PO DAILY docosahexaenoic acid [ DHA] PO Referrals / Follow Up: Care Physician,No Primary [Primary Care Provider] - Disposition Disposition (needs filled in before D/C Order can be placed): Home, Self Care
[2024-01-18] MEDS: Acetaminophen 500 MG Tablet PO (22:26)
[2024-01-19 00:12] VITALS: BP 121/70; PULSE 78; RESP 14; TEMP 36.6; O2SAT 96
[2024-01-19 03:36] VITALS: BP 116/73; PULSE 71; RESP 16; TEMP 36.6
--- NOTE | 2024-01-19 07:58 | PN.OBGYN_ITS ---
Subjective Subjective Patient doing well without complaints. Tolerating PO. Ambulating and voiding without difficulty. Feeding well. Denies chest pain, shortness of breath, calf pain/swelling, fevers, chills, lightheadedness. Objective Data Objective Data Vital Signs: Vital Signs Temp Pulse Resp BP Pulse Ox O2 Del Method 97.9 F 71 16 116/73 96 Room Air 01/19/24 03:36 01/19/24 03:36 01/19/24 03:36 01/19/24 03:36 01/19/24 00:12 01/19/24 03:36 Oxygen Delivery Method Room Air Weight: 150 lb Body Mass Index (BMI) 26.5 Intake & Output: Intake and Output for Last 24 Hours 01/17/24 01/18/24 01/19/24 23:59 23:59 23:59 Intake Total 461.53 / 461.53 Output Total 700 / 700 600 / 600 Balance -238.47 / -238.47 -600 / -600 Lab / Micro Data 01/18/24 13:55 Labs: Laboratory Results - last 24 hr 01/18/24 13:55: WBC 10.0, RBC 3.83 L, Hgb 11.7 L, Hct 35.6 L, MCV 93.0, MCH 30.5, MCHC 32.9, RDW Std Deviation 51.8 H, RDW Coeff of [place] 15.3 H, Plt Count 204, MPV 10.5, Immature Gran % (Auto) 0.500, Neut % (Auto) 79.2 H, Lymph % (Auto) 14.1 L, [place] % (Auto) 5.8, Eos % (Auto) 0.1, Baso % (Auto) 0.3, Absolute Neuts (auto) 7.9 H, Absolute Lymphs (auto) 1.41, Nucleated RBC % 0, Syphilis Total Ab Non-reactive, Blood Type A POSITIVE, Antibody Screen NEGATIVE ROS Constitutional Constitutional: Denies chills, fatigue, fever(s), poor appetite or weakness Eyes Eyes: Denies blurry vision, change in vision, seeing flashes or spots in vision ENT HEENT: Denies dizziness, headache(s), loss taste/smell or sore throat Cardiovascular Cardiovascular: Denies chest pain, dizziness, dyspnea, irregular heart rhythm, palpitations or rapid heart rate Respiratory/Chest Respiratory/Chest: Denies chest tightness, cough, dyspnea or breast pain Gastrointestinal Gastrointestinal: Denies abdominal pain, constipation or vomiting Genitourinary Genitourinary: Denies dysuria or flank pain Musculoskeletal Musculoskeletal: Denies difficulty walking, joint pain, limited range of motion or numbness Neurologic Neurologic: Denies abnormal movements, abnormal speech, dizziness, numbness, seizure-like activity or syncope Psychiatric Psychiatric: Denies anxiety, behavioral changes, change in appetite, confusion, depression or suicidal thoughts Physical Exam Const alert, oriented x3 and no apparent distress General Appearance: cooperative and comfortable Resp normal respiratory effort Cardio regular rate GI normal to inspection, nondistended, normoactive bowel sounds GI Narrative: uterus is firm below umbilicus Palpation: soft Back/Spine no CVA tenderness and thoraco-lumbar ROM normal Extremity normal to inspection, no clubbing, cyanosis or edema, no calf tenderness and no pedal edema Psych mental status grossly normal, thought process normal, cooperative, affect normal, speech normal, activity/motor behavior normal, denies homicidal ideation and denies suicidal ideation Assessment & Plan (1) Vaginal delivery: COMMENT: GLORIA BONILLA IAL 39 girl Ivy PLAN: Plan s/p PPD # 1 1. routine post delivery care 2. breast feeding- support given 3. rh positive 4. rubella immune Plan for dc to home later today. follow up in 6 weeks
[2024-01-19 08:32] VITALS: BP 118/85; PULSE 67; RESP 16; TEMP 36.2
[2024-01-19] MEDS: Acetaminophen 500 MG Tablet PO ×2 (08:40→18:33)
[2024-01-19 11:55] VITALS: BP 107/69; PULSE 73; RESP 17; TEMP 36.2
[2024-01-19 16:22] VITALS: BP 120/77; PULSE 67; RESP 15; TEMP 36.6
[2024-01-19 17:23] VITALS: BP 120/77; PULSE 67; RESP 15; TEMP 36.6
== END 2024-01-19 19:50 | disposition home or self-care (01) | DRG 807 ==
LOC: WPOUT 17:35 → WP 17:35
PROVIDERS: Admitting Provider Obstetrics & Gynecology; Referring Provider Obstetrics & Gynecology; Visit Provider Obstetrics & Gynecology
DX: O26.843 Uterine size-date discrepancy, third trimester (principal); Z37.0 Single live birth; O70.1 Second degree perineal laceration during delivery; Z3A.39 39 weeks gestation of pregnancy; Z86.32 Personal history of gestational diabetes; Z87.891 Personal history of nicotine dependence
CPT/HCPCS: 59025; 59050; 85025; 86780; 86850; 86900; 86901; 99221; G0378

== ENCOUNTER → 2025-03-07 | Outpatient (CLI) | payer OTHER, SELFPAY | END | disposition home or self-care (01) | LOC: LABSPEC 10:18 | PROVIDERS: Visit Provider Advanced Practice Midwife | DX: Z12.4 Encounter for screening for malignant neoplasm of cervix (principal) | CPT/HCPCS: 88175; G0145 ==